=== PATIENT | female | born 1975 | race Caucasian/White ===

== ENCOUNTER 2017-02-17 13:29 | Emergency (ER) | payer OTHER ==
[2017-02-17 13:35] VITALS: RESP 18
[2017-02-17] MEDS ORDERED: ASPIRIN 81 MG CHEWABLE TAB PO ONE (13:59)
--- NOTE | 2017-02-17 13:59 | CPEKG ---
Heart Rate: 108 RR Interval: 556 QRSD Interval: 84 QT Interval: 340 QTC Interval: 456 QRS Stevenson: 75 T Wave Stevenson: -12 EKG Severity - ABNORMAL ECG - EKG Impression: Sinus tachycardia Electronically Signed By: Gio Hernandez 17-Feb-2017 15:51:43
--- NOTE | 2017-02-17 14:03 | EDPHY ---
H & P Stated Complaint: jaw pain, bilateral arm pain x1 day Source: Patient, Old records Exam Limitations: No limitations - Personal History LMP (Females 10-55): Now Current Tetanus Diphtheria and Acellular Pertussis (TDAP): Unsure - Medical/Surgical History Hx Asthma: No Hx Chronic Respiratory Disease: No Hx Diabetes: No Hx Cardiac Disease: No Hx Renal Disease: No Hx Cirrhosis: No Hx Alcoholism: No Hx HIV/AIDS: No Hx Splenectomy or Spleen Trauma: No Other PMH: denies - Social History Smoking Status: Former smoker HPI/ROS: CHIEF COMPLAINT: Chest Pain HISTORY OF PRESENT ILLNESS: Right-sided chest pain that has been present for quite some time. It has worsened over the past 2 days. Also involving the right jaw and shoulder. It is unpredictable and not necessarily worse with exertion. There is occasional shortness of breath. No cough. No trauma or injury. No lower extremity erythema edema or pain. No hypertension, diabetes or previous diagnosis of coronary artery disease. She has had this pain for nearly a year. Last year she was seen by director of strategic partnerships Dr. Lowe. A CT scan of the chest was performed but no stress test and no heart catheterization. She said she is primarily concerned because the pain has now spread to the jaw and shoulder. No history of venous thrombolic event. No exogenous estrogen use. No travel or surgery recently. No other associated complaints or modifying factors. FAMILY HISTORY CARDIAC: Father had an AZ at 50 PRIOR CARDIAC WORKUP: No history of stress test or heart catheterization REVIEW OF SYSTEMS: Ten systems reviewed and are negative unless otherwise noted in the HPI EXAMINATION: General Appearance: Alert, no distress Head: normocephalic, atraumatic Eyes: Pupils equal and round, no conjunctival pallor or injection ENT, Mouth: Mucous membranes moist. Uvula midline. Airway is widely patent. Neck: Normal inspection, supple, non-tender Respiratory: Lungs are clear to auscultation. No wheezing, rhonchi or crackles. Cardiovascular: Regular rate and rhythm. No murmur. Pulses intact distally and symmetrically Gastrointestinal: Abdomen is soft and nontender Back: non-tender, no bony abnormalities Neurological: GCS 15. A&O, nonfocal, normal gait. Strength is symmetric in all limbs. Skin: Warm and dry, no rash. No petechiae or purpura Extremities: Nontender, no pedal edema Psychiatric: Mood and affect normal DIFFERENTIAL DIAGNOSES: Including but not limited to in no particular order: Acute Chest Pain, ACS, Stable Angina, Pneumonia, PE, duodenitis, gastritis, esophagitis, GERD MDM: 2:02 p.m. Chest pain that has been present for nearly 24 hours. This is on top of nearly a year of the symptoms. Vital signs are stable with mild tachycardia on examination. 3:05 p.m. Chest x-ray, laboratory studies including troponin are all negative for any acute findings. D-dimer is also negative. She is resting comfortably at this time. She is reassured air this. This is for chest pain that has been present on and off for the past year. It has been present for greater than 24 hours at this time. I do feel we have ruled out acute coronary syndrome at this time. However, I did offer admission to the hospital for further workup. She has declined. She says that she prefers to go home. I do feel that she is stable for discharge home. But I have instructed her to return to the ER should she has any change in her chest pain or variance in her symptoms. She is comfortable with this plan and discharged home stable condition. She will follow up with her director of strategic partnerships on Thursday. She has an appoint with Dr. Anna Leon 3:15 p.m. Notified by radiologist. There is incidental note of a calcification left lower no. This does not appear worrisome. It is stable from previous CT imaging. I have notified the patient of this. She is aware of this and will follow up with primary care physician. EKG: Interpreted by Dr. Hernandez Sinus tachycardia at 108 beats per minute. No acute ischemia. SUPERVISION: Patient was evaluated in conjunction with the supervising physician. Please see their note for details. (Cody Esposito) Constitutional: Initial Vital Signs Temperature (C) 37.1 C 02/17/17 13:32 Heart Rate 95 02/17/17 13:32 Respiratory Rate 18 02/17/17 13:32 Blood Pressure 119/78 02/17/17 13:32 O2 Sat (%) 99 02/17/17 13:32 O2 Delivery Mode Room Air Allergies/Adverse Reactions: No Known Allergies Allergy (Unverified 02/17/17 13:35) Home Medications: Medication Instructions Recorded NK [No Known Home Meds] 02/17/17 Medical Decision Making - Diagnostics EKG Interpretation: EKG interpreted by me shows sinus tachycardia. Normal interval and axis. QRS is normal there is no significant ST elevation or depression. The rate is 108 ( Gio Hernandez) Imaging Results: Imaging Impressions Chest X-Ray 02/17/17 14:00 Impression: 1. No acute pulmonary disease or pneumothorax. 2. Left lower lobe calcified 9 mm granuloma. Findings and recommendations discussed with Emergency Department physician, Cody Esposito PAC at 15:12 hour, 02/17/2017. Final report concurs with initial preliminary interpretation. ED Course/Re-evaluation: I did not see this patient while she was in the emergency department. However her care was discussed with the PA while the patient was in the department. PA and I agreed to recommended admission for further evaluation to the patient. I agree with treatment plan and management (Gio Hernandez) - Data Points Laboratory Results: Laboratory Results 02/17/17 14:00 02/17/17 14:00 02/17/17 02/17/17 02/17/17 14:00 14:00 14:00 WBC RBC Hgb Hct MCV MCH MCHC RDW Plt Count MPV Neut % (Auto) Lymph % (Auto) Stanly % (Auto) Eos % (Auto) Baso % (Auto) Nucleat RBC Rel Count Absolute Neuts (auto) Absolute Lymphs (auto) Absolute Monos (auto) Absolute Eos (auto) Absolute Basos (auto) Absolute Nucleated RBC Immature Gran % Immature Gran # PT 12.6 SEC SEC (12.0-15.0) INR 0.95 (0.83-1.16) APTT 27.7 SEC SEC (23.0-38.0) D-Dimer < 0.27 ug/mLFEU ug/mLFEU (0.00-0.50) Sodium 140 mEq/L mEq/L (134-144) Potassium 3.8 mEq/L mEq/L (3.5-5.2) Chloride 103 mEq/L mEq/L (97-110) Carbon Dioxide 26 mEq/l mEq/l (22-31) Anion Gap 11 mEq/L mEq/L (8-16) BUN 9 mg/dL mg/dL (7-23) Creatinine 0.7 mg/dL mg/dL (0.6-1.0) Estimated GFR > 60 Glucose 134 mg/dL H mg/dL (70-100) Calcium 9.7 mg/dL mg/dL (8.5-10.4) Troponin I < 0.012 ng/mL ng/mL (0-0.034) NT-Pro-B Natriuret Pep 69 pg/mL pg/mL (0-125) Lipase 99.0 IU/L IU/L (23-300) Beta HCG, Qual NEGATIVE 02/17/17 14:00 WBC 9.28 10^3/uL 10^3/uL (3.80-9.50) RBC 4.59 10^6/uL 10^6/uL (4.18-5.33) Hgb 13.3 g/dL g/dL (12.6-16.3) Hct 39.1 % % (38.0-47.0) MCV 85.2 fL fL (81.5-99.8) MCH 29.0 pg pg (27.9-34.1) MCHC 34.0 g/dL g/dL (32.4-36.7) RDW 12.6 % % (11.5-15.2) Plt Count 269 10^3/uL 10^3/uL (150-400) MPV 9.4 fL fL (8.7-11.7) Neut % (Auto) 66.0 % % (39.3-74.2) Lymph % (Auto) 26.5 % % (15.0-45.0) Stanly % (Auto) 5.9 % % (4.5-13.0) Eos % (Auto) 0.9 % % (0.6-7.6) Baso % (Auto) 0.4 % % (0.3-1.7) Nucleat RBC Rel Count 0.0 % % (0.0-0.2) Absolute Neuts (auto) 6.12 10^3/uL 10^3/uL (1.70-6.50) Absolute Lymphs (auto) 2.46 10^3/uL 10^3/uL (1.00-3.00) Absolute Monos (auto) 0.55 10^3/uL 10^3/uL (0.30-0.80) Absolute Eos (auto) 0.08 10^3/uL 10^3/uL (0.03-0.40) Absolute Basos (auto) 0.04 10^3/uL 10^3/uL (0.02-0.10) Absolute Nucleated RBC 0.00 10^3/uL 10^3/uL (0-0.01) Immature Gran % 0.3 % % (0.0-1.1) Immature Gran # 0.03 10^3/uL 10^3/uL (0.00-0.10) PT INR APTT D-Dimer Sodium Potassium Chloride Carbon Dioxide Anion Gap BUN Creatinine Estimated GFR Glucose Calcium Troponin I NT-Pro-B Natriuret Pep Lipase Beta HCG, Qual Medications Given: Discontinued Medications Aspirin (Aspirin) 324 mg PO EDNOW ONE Stop: 02/17/17 14:00 Last Admin: 02/17/17 14:23 Dose: 324 mg Departure - Departure Disposition: Home, Routine, Self-Care Clinical Impression: Chest pain Qualifiers: Chest pain type: unspecified Qualified Code(s): R07.9 - Chest pain, unspecified Condition: Good Instructions: Chest Pain (ED) Additional Instructions: Follow up with director of strategic partnerships as scheduled on Thursday. Return to the ER for worsening symptoms. Referrals: NONE *PRIMARY CARE P,. [Primary Care Provider] - As per Instructions Obed Lowe MD [Medical Doctor] - As per Instructions
[2017-02-17 14:23] LABS: % IMMATURE GRANULYOCYTES 0.3 % (0.0-1.1); ABSOLUTE IMMATURE GRANULOCYTES 0.03 10^3/uL (0.00-0.10); ADD DIFF? NO; ADD MORPH? NO; ADD SCAN? NO; ATYPICAL LYMPHOCYTE FLAG 0 (0-99); FRAGMENT RBC FLAG 0 (0-99); HEMATOCRIT 39.1 % (38.0-47.0); HEMOGLOBIN 13.3 g/dL (12.6-16.3); LEFT SHIFT FLG 0 (0-99); LIPEMIA HEMOLYSIS FLAG 90 (0-99); MEAN CELL VOLUME 85.2 fL (81.5-99.8); MEAN PLATELET VOLUME 9.4 fL (8.7-11.7); PLATELET CLUMPS FLAG 0 (0-99); PLATELET COUNT 269 10^3/uL (150-400); RED BLOOD CELL COUNT 4.59 10^6/uL (4.18-5.33); RED CELL DISTRIBUTION WIDTH 12.6 % (11.5-15.2)
[2017-02-17 14:30] LABS: INR 0.95 (0.83-1.16); PROTIME(PATIENT) 12.6 SEC (12.0-15.0)
[2017-02-17 14:31] LABS: APTT 27.7 SEC (23.0-38.0)
[2017-02-17 14:47] LABS: ANION GAP 11 mEq/L (8-16); CALCIUM 9.7 mg/dL (8.5-10.4); CARBON DIOXIDE 26 mEq/l (22-31); CHLORIDE 103 mEq/L (97-110); CREATININE 0.7 mg/dL (0.6-1.0); GLOMERULAR FILTRATION RATE > 60; GLUCOSE 134 mg/dL (70-100); POTASSIUM 3.8 mEq/L (3.5-5.2); SODIUM 140 mEq/L (134-144)
[2017-02-17 14:56] LABS: TROPONIN I < 0.012 ng/mL (0-0.034)
[2017-02-17 15:23] VITALS: BP 104/78; PULSE 81; TEMP 98.2; O2SAT 99
== END 2017-02-17 15:35 | disposition home or self-care (01) ==
DX: R07.9 Chest pain, unspecified (principal); Z87.891 Personal history of nicotine dependence

== ENCOUNTER → 2017-07-24 | Outpatient (CLI) | payer OTHER | LOC: CIMAGING 10:50 | PROVIDERS: ATTEND Family Medicine | DX: R20.2 Paresthesia of skin (principal); M54.2 Cervicalgia | CPT/HCPCS: 72040-PO ==

== ENCOUNTER → 2017-08-26 | Outpatient (CLI) | payer OTHER | LOC: FIMAGING 07:30 | PROVIDERS: ATTEND Internal Medicine | DX: R11.0 Nausea (principal); R10.9 Unspecified abdominal pain ==

== ENCOUNTER → 2017-08-29 | Outpatient (CLI) | payer OTHER | LOC: FIMAGING 10:32 | PROVIDERS: ATTEND Psychiatry & Neurology Neurology | DX: R20.2 Paresthesia of skin (principal) ==

== ENCOUNTER → 2018-01-28 | Outpatient (CLI) | payer OTHER | LOC: FIMAGING 12:14 | PROVIDERS: ATTEND Internal Medicine | DX: J98.4 Other disorders of lung (principal) ==

== ENCOUNTER → 2018-10-14 | Outpatient (CLI) | payer MEDICAID | LOC: FIMAGING 13:59 | DX: M79.671 Pain in right foot (principal); M79.672 Pain in left foot | CPT/HCPCS: 82784-90; 84080-90 ==